=== PATIENT | male | born 2000 | race Asian ===

== ENCOUNTER 2018-03-14 16:48 | Emergency (ER) | payer SELFPAY ==
--- NOTE | 2018-03-14 17:20 | RAD ---
LEFT KNEE 4 VIEWS: Date: 03/14/18 COMPARISON: None. HISTORY: Left knee pain. FINDINGS: No knee joint effusion, displaced fracture, or evidence of dislocation appreciated. IMPRESSION: No acute osseous abnormality. POS: [id number]
[2018-03-14] MEDS ORDERED: Bacitracin Zinc 1 Packet ONE (19:32)
== END 2018-03-14 19:43 | disposition home or self-care (01) ==
LOC: ERS 16:48
DX: S80.212A Abrasion, left knee, initial encounter (principal); V89.2XXA Person injured in unspecified motor-vehicle accident, traffic, initial encounter